=== PATIENT | female | born 1970 | race African-American/Black ===

== ENCOUNTER 2019-02-05 09:08 | Day surgery (SDC) | payer BC ==
[2019-02-04 08:57] VITALS: BMI 45.8
--- NOTE | 2019-02-05 08:10 | HP ---
History & Physical Update - Physical Physical: No Change - Assessment Assessment: No Change - Plan Plan: No Change (H&P reviwed, no changes for hysteroscopy , resection of submucos myoma, D&C)
[2019-02-05] MEDS ORDERED: MIDAZOLAM HCL 2 MG/2 ML SINGLE DOSE VIAL ONE (10:18)
[2019-02-05] MEDS ORDERED: LIDOCAINE HCL/PF 2% SDV 5ML VIAL ONE ×2 (10:18→11:44)
[2019-02-05] MEDS ORDERED: DEXAMETHASONE SOD PHOSPHATE 4 MG/1 ML VIAL ONE ×2 (10:18→11:44)
[2019-02-05] MEDS ORDERED: ONDANSETRON 4 MG/2 ML VIAL IVPUSH PRN ×2 (10:40→11:50)
[2019-02-05] MEDS ORDERED: oxyCODONE HCL 5 MG TABLET PO PRN ×2 (10:40→11:50)
[2019-02-05] MEDS ORDERED: IBUPROFEN 600 MG TABLET (FP) PO PRN ×2 (10:40→11:50)
[2019-02-05] MEDS ORDERED: IBUPROFEN 800 MG/8 ML IJ IVPB PRN ×2 (10:40→11:50)
[2019-02-05] MEDS ORDERED: ELECTROLYTE-148 SOLN 1,000 ML IV SCH ×2 (10:45→12:00)
[2019-02-05] MEDS ORDERED: KETOROLAC TROMETHAMINE 30 MG/1 ML VIAL ONE ×3 (10:55→12:09)
[2019-02-05] MEDS ORDERED: PROPOFOL 20 ML ONE (11:20)
[2019-02-05] MEDS ORDERED: LACTATED RINGERS SOLUTION 1,000 ML IV SCH (12:30)
[2019-02-05 13:03] VITALS: TEMP 97.4
[2019-02-05 13:22] VITALS: BP 146/75; PULSE 58
--- NOTE | 2019-02-05 13:35 | OP ---
DATE OF OPERATION: 02/05/2019 PREOPERATIVE DIAGNOSES: Menometrorrhagia. Submucous myoma. POSTOPERATIVE DIAGNOSES: Menometrorrhagia. Submucous myoma. PROCEDURES: Hysteroscopy, dilatation and curettage, and resection of submucous myoma. SURGEON: Modesto Burt MD ANESTHESIA: General. ESTIMATED BLOOD LOSS: 50 mL. OPERATION: Patient was taken to the operating room and had adequate general anesthesia in dorsal lithotomy position. Examination under anesthesia revealed the external genitalia to be normal; vagina was normal; cervix was clean, no gross lesion; uterus appeared to be enlarged and globular; adnexa, no masses were palpable. Then, with the weighted speculum in the vagina, anterior lip of the cervix was grasped with a single-tooth tenaculum. Uterine cavity was sounded to 10 cm. Cervix was slightly dilated. Symphion resectoscope was introduced into the uterine cavity. Visualization of the endocervical canal appeared to be normal. The endometrium for the most part was atrophic. Both cornual regions were identified. There was a large submucous myoma from the fundal area of the uterus which was approximately 2-3 cm in size. Then, Symphion resectoscope was introduced and then the area of fibroids with the resectoscope was cut in half and then removed in pieces. The pieces were suctioned and then no active bleeding was seen at the site of procedure. The endometrium was curetted. Patient tolerated procedure well. Left the OR in good condition. MODESTO BURT M.D. [id number]
--- NOTE | 2019-02-07 15:37 | PATH ---
Surgical Pathology Report Patient Name: [facility]. Rec. #: [id number] /Age/Gender: 1970 (Age: 49) / F Account: [id number] Location: [facility] SURGICAL Taken: 02/05/2019 Received: 02/05/2019 Reported: 02/07/2019 Physicians: Modesto Burt M.D. Specimen(s) Received A: ENDOMETRIAL CURETTINGS B: UTERINE FIBROIDS Clinical History Submucous leiomyoma of uterus Final Diagnosis A. ENDOMETRIUM, CURETTAGE: POLYPOID FRAGMENTS OF WEAKLY PROLIFERATIVE ENDOMETRIUM. PORTIONS OF SUBMUCOSAL LEIOMYOMA. BENIGN CERVICAL (SQUAMOUS) MUCOSA. B. FIBROIDS, HYSTEROSCOPIC RESECTION: PORTIONS OF SUBMUCOSAL LEIOMYOMA. DETACHED STRIPS OF WEAKLY PROLIFERATIVE ENDOMETRIUM. BENIGN CERVICAL (SQUAMOUS AND ENDOCERVICAL) MUCOSA. Electronically Signed Jyotsna Segovia M.D. Gross Description A. Received in formalin labeled "endometrial curettings," is a 2.7 x 2.5 x 0.3 cm aggregate of black-red soft tissue fragments admixed with blood clot. The formalin is filtered and the specimen is entirely submitted in 2 cassettes. B. Received in formalin labeled "fibroids," is a 1 g, 2.5 x 2.3 x 0.3 cm aggregate of black soft tissue fragments. The formalin is filtered and the specimen is entirely submitted in 2 cassettes. /02/05/2019 [facility]02/05/2019
== END 2019-02-05 13:23 | disposition home or self-care (01) ==
LOC: JASU-SURG 09:08
PROVIDERS: ATTEND Obstetrics & Gynecology
PROC: 0UJD8ZZ Inspection of Uterus and Cervix, Via Natural or Artificial Opening Endoscopic (ICD-10-PCS; 2019-02-05)
PROC: 0UB98ZZ Excision of Uterus, Via Natural or Artificial Opening Endoscopic (ICD-10-PCS; principal; 2019-02-05 10:00)
PROC: 0UDB7ZX Extraction of Endometrium, Via Natural or Artificial Opening, Diagnostic (ICD-10-PCS; 2019-02-05 10:00)
DX: N92.1 Excessive and frequent menstruation with irregular cycle (principal); D25.0 Submucous leiomyoma of uterus
CPT/HCPCS: 84703; 88305-TC; 94760

== ENCOUNTER 2022-09-08 04:15 | Day surgery (SDC) | payer BC ==
[2022-09-07 13:53] VITALS: BMI 46.5
[2022-09-08] MEDS ORDERED: MIDAZOLAM HCL 2 MG/2 ML SINGLE DOSE VIAL ONE ×2 (10:47→11:03)
[2022-09-08] MEDS ORDERED: LIDOCAINE HCL/PF 2% SDV 5ML VIAL ONE (10:48)
[2022-09-08] MEDS ORDERED: SUCCINYLCHOLINE CHLORIDE 200 MG/10 ML SYRINGE ONE (10:49)
[2022-09-08] MEDS ORDERED: PROPOFOL 20 ML ONE (11:02)
[2022-09-08] MEDS ORDERED: LIDOCAINE HCL 2% 100 MG/5 ML DISP.SYRIN ONE (11:02)
[2022-09-08] MEDS ORDERED: DEXAMETHASONE SOD PHOSPHATE 4 MG/1 ML VIAL ONE (11:30)
[2022-09-08] MEDS ORDERED: KETOROLAC TROMETHAMINE 30 MG/1 ML VIAL ONE (11:36)
[2022-09-08] MEDS ORDERED: ONDANSETRON 4 MG/2 ML VIAL ONE (11:36)
[2022-09-08] MEDS ORDERED: ONDANSETRON 4 MG/2 ML VIAL IVPUSH PRN ×2 (12:10→13:18)
[2022-09-08] MEDS ORDERED: PROMETHAZINE HCL 25 MG/1 ML VIAL IVPUSH PRN (12:10)
[2022-09-08] MEDS ORDERED: oxyCODONE HCL 5 MG TABLET PO PRN ×3 (12:10→13:18)
[2022-09-08] MEDS ORDERED: ACETAMINOPHEN 1000 MG/100 ML BAG IVPB ONE (12:11)
[2022-09-08] MEDS ORDERED: hydrALAZINE HCL 20 MG/ML VIAL IVPUSH ONE (12:11)
[2022-09-08] MEDS ORDERED: LACTATED RINGERS SOLUTION 1,000 ML IV SCH (12:15)
[2022-09-08] MEDS ORDERED: IBUPROFEN 800 MG/8 ML IJ IVPB PRN (13:18)
[2022-09-08] MEDS ORDERED: IBUPROFEN 600 MG TABLET (FP) PO PRN (13:18)
[2022-09-08] MEDS ORDERED: ELECTROLYTE-148 SOLN 1,000 ML IV SCH (13:30)
[2022-09-08 13:57] VITALS: RESP 20
[2022-09-08 14:19] VITALS: BP 145/86; PULSE 80; TEMP 97.8
== END 2022-09-08 14:10 | disposition home or self-care (01) ==
LOC: JASU-SURG 04:15
PROVIDERS: ATTEND Obstetrics & Gynecology
PROC: 0UDB7ZX Extraction of Endometrium, Via Natural or Artificial Opening, Diagnostic (ICD-10-PCS; 2022-09-08)
PROC: 0UJD8ZZ Inspection of Uterus and Cervix, Via Natural or Artificial Opening Endoscopic (ICD-10-PCS; 2022-09-08)
PROC: 0UB98ZZ Excision of Uterus, Via Natural or Artificial Opening Endoscopic (ICD-10-PCS; principal; 2022-09-08 11:30)
DX: N95.0 Postmenopausal bleeding (principal); D25.0 Submucous leiomyoma of uterus
CPT/HCPCS: 88305-TC; 94760

== ENCOUNTER 2022-09-11 20:08 | Emergency (ER) | payer BC ==
[2022-09-11 20:16] VITALS: BP 187/111; PULSE 66; RESP 20; TEMP 98.2; BMI 46.5
[2022-09-11] MEDS ORDERED: IBUPROFEN 400 MG TABLET (FP) PO ONE ×2 (20:33→20:35)
== END 2022-09-11 20:38 | disposition home or self-care (01) ==
LOC: JERFT 20:08
DX: S63.279A Dislocation of unspecified interphalangeal joint of unspecified finger, initial encounter (principal)
CPT/HCPCS: 73140-TC-LT-FY; 99284-25